=== PATIENT | female | born 1950 | race Caucasian/White ===

== ENCOUNTER → 2017-12-03 | Outpatient (CLI) | payer MEDICARE, OTHER ==
--- NOTE | 2017-12-03 11:23 | US ---
EXAMINATION TYPE: US pelvic complete DATE OF EXAM: 12/03/2017 COMPARISON: NONE CLINICAL HISTORY: 67-year-old female R10.9 abdominal pain; patient stated has pelvic pain with recurr ent UTI; post menopausal; A1 TECHNIQUE: Transabdominal sonographic images of the pelvis were acquired. Date of LMP: late 40's patient age FINDINGS: EXAM MEASUREMENTS: Uterus: 6.2 x 3.7 x 2.9 cm Endometrial Stripe: 2.6mm Right Ovary: 2.1 x 2.3 x 1.2 cm Left Ovary: 2.1 x 2.0 x 1.1 cm 1. Uterus: Anteverted 2. Endometrium: thickness appears wnl 3. Right Ovary: wnl 4. Left Ovary: wnl 5. Bilateral Adnexa: overlying bowel gas is noted 6. Posterior cul-de-sac: wnl 7. Bladder images are recorded on abdomen complete US today for history of recurrent UTI. IMPRESSION: No specific abnormality identified of the pelvis on transabdominal scanning.
--- NOTE | 2017-12-03 11:26 | US ---
EXAMINATION TYPE: US abdomen complete DATE OF EXAM: 12/03/2017 COMPARISON: NONE CLINICAL HISTORY: 67-year-old female R10.9 abdominal pain; pelvic pain with recurrent UTI x 1 year pe r patient TECHNIQUE: Multiple sonographic images of the abdomen were obtained. FINDINGS: EXAM MEASUREMENTS: Liver Length: 18.7 cm Gallbladder Wall: 0.2 cm CBD: 0.5 cm Spleen: 10.2 cm Right Kidney: 9.9 x 6.1 x 4.7 cm Left Kidney: 9.6 x 5.5 x 5.0 cm Pancreas: wnl Liver: Mildly enlarged with homogeneous appearance and no focal lesion. Gallbladder: Borderline hydropic with posterior wall echoes noted in LLD position.Evidence for son ographic Mendieta's sign: no CBD: wnl Spleen: wnl Right Kidney: No hydronephrosis. Left Kidney: Prominent lobulations. No hydronephrosis. Upper IVC: wnl Abd Aorta: mild intimal wall thickening is noted distally Urinary Bladder: Partial distention limits evaluation. The bilateral ureteral jets were seen. No peg s abnormality identified. Post Void volume is within normal limits at 4.2ml. IMPRESSION: 1. Small amount of tumefactive sludge in the gallbladder. Borderline gallbladder hydrops likely due t o fasting state. Clinically correlate. If right upper quadrant pain or concern for early acute cholec ystitis, follow-up ultrasound or HIDA scan. 2. Mild hepatomegaly (18.7 cm). 3. No sonographic evidence for urinary retention.
== END | disposition home or self-care (01) ==
LOC: RADUSWWP 06:49
PROVIDERS: ATTEND Internal Medicine
DX: K82.8 Other specified diseases of gallbladder (principal); R16.0 Hepatomegaly, not elsewhere classified; R10.9 Unspecified abdominal pain
CPT/HCPCS: 76700; 76856

== ENCOUNTER → 2019-04-06 | Outpatient (CLI) | payer MEDICARE, OTHER ==
--- NOTE | 2019-04-06 17:24 | CT ---
EXAMINATION TYPE: CT abdomen pelvis wo con DATE OF EXAM: 04/06/2019 COMPARISON: None HISTORY: abdominal pain and distention CT DLP: 330.9 mGycm Automated exposure control for dose reduction was used. TECHNIQUE: Helical acquisition of images was performed from the lung bases through the pelvis. FINDINGS: LUNG BASES: No significant abnormality is appreciated. LIVER/GB: Unenhanced liver is homogeneous but enlarged. No radiopaque calculi in the gallbladder. PANCREAS: No significant abnormality is seen. SPLEEN: No splenomegaly ADRENALS: No significant abnormality is seen. KIDNEYS: There is a lobular contour of both kidneys and evaluation for renal mass is limited without contrast. Hydronephrosis or nephrolithiasis. FREE AIR: No free air is visualized ADENOPATHY: No greater than 1 cm short axis lymph node in the abdomen or pelvis. REPRODUCTIVE ORGANS: No significant abnormality is seen OSSEOUS STRUCTURES: Advanced degenerative disc disease of the visualized thoracolumbar spine. BOWEL: There are multiple loops of small bowel demonstrating small bowel wall thickening and surroun ding inflammatory fat stranding. These predominate in the left mid abdomen such as on series 3 image 37. These loops are very mildly dilated measuring 3.2 cm. Contrast extends into the colon and through out the colon into the rectum therefore no evidence of bowel obstruction. Air-fluid levels are seen t hroughout the colon. Few colonic diverticula are present without pericolonic fat stranding. OTHER: Abdominal aorta is of normal course and caliber. Moderate atheromatous change. IMPRESSION: ACUTE UNCOMPLICATED ENTERITIS WITH INFLAMMATORY FAT STRANDING TERMINATING IN THE LEFT MID ABDOMEN. EN TERITIS IS TYPICALLY INFLAMMATORY OR INFECTIOUS IN ETIOLOGY. SMALL BOWEL ILEUS IS ALSO SEEN. NO OBSTR UCTION.
== END | disposition home or self-care (01) ==
LOC: RADCTMAIN 15:09
PROVIDERS: ATTEND Physician Assistant
DX: K52.9 Noninfective gastroenteritis and colitis, unspecified (principal); K63.89 Other specified diseases of intestine
CPT/HCPCS: 36415; 74176; 82565; 84520

== ENCOUNTER 2019-10-14 07:08 | Day surgery (SDC) | payer MEDICARE ==
[2019-10-13 09:05] VITALS: BMI 22.6
[~2019-10-14 07:08] MED LIST: DEXAMETHASONE SOD PHOSPHATE 10 MG/ML 1 ML VIAL IV ONE; LACTATED RINGERS 1,000 ML IV SCH; MOXIFLOXACIN HCL 0.5% DROPS 3 ML BTL OP ONE; ONDANSETRON 4 MG/2 ML VIAL IVP ONE; TETRACAINE 0.5% OPHTH (PF) DROPS 4 ML BTL OP ONE; TIMOLOL 0.5% OPHTH DROPS 5 ML BTL OP ONE
[2019-10-14] MEDS: CYCLOPENTOLATE 1% OPHTH SOLN 2 ML BTL OP ONE ×3 (07:28→07:46)
[2019-10-14] MEDS: PHENYLEPHRINE 2.5% OPHTH DRP 2ML OP NR ×3 (07:33→07:49)
[2019-10-14] MEDS ORDERED: LIDOCAINE 1% (10MG/ML) FOR IV START INTRADERMA ONE (07:35)
[2019-10-14 07:42] LABS: Glucose,Whole Blood 111 mg/dL (75-99)
[2019-10-14 07:56] VITALS: TEMP 96.5
[2019-10-14] MEDS ORDERED: fentaNYL (PF) 50 MCG/ML 2 ML AMP ONE (08:06)
[2019-10-14] MEDS ORDERED: MIDAZOLAM 2 MG/2 ML VIAL ONE (08:06)
[2019-10-14] MEDS ORDERED: EPINEPHrine (PF) 0.3 ML in BALANCED SALT IRRIG SOLN COMB2 500 ML IRRIGATION ONE (08:26)
[2019-10-14] MEDS ORDERED: BALANCED SALT IRRIG SOLN COMB2 15 ML IRRIG.SOLN INTRAOCULA ONE (08:32)
[2019-10-14] MEDS ORDERED: DUOVISC KIT (GREEN BOX) INTRAOCULA ONE ×2 (08:33)
[2019-10-14] MEDS ORDERED: LIDOCAINE 1% (PF) 10MG/ML VIAL SQ ONE (08:33)
[2019-10-14] MEDS ORDERED: EPINEPHrine (PF) 1 MG/ML AMP SQ ONE (08:42)
[2019-10-14] MEDS ORDERED: TETRACAINE 0.5% OPHTH (PF) DROPS 4 ML BTL RIGHT EYE ONE (08:43)
--- NOTE | 2019-10-14 08:49 | P.OP ---
Date of Procedure: 10/14/19 Preoperative Diagnosis: NS & CS Postoperative Diagnosis: same Procedure(s) Performed: PIOL, OD Implants: [id number] 15.50 Anesthesia: MAC Surgeon: Leeroy Ulrich Estimated Blood Loss (ml): 0 Pathology: none sent Condition: stable Disposition: same day Indications for Procedure: blurry vision Operative Findings: no complications
[2019-10-14 09:14] VITALS: BP 137/76; PULSE 70; RESP 18
--- NOTE | 2019-10-14 18:29 | OP ---
OPERATIVE REPORT DATE OF SURGERY: October 14, 2019. PROCEDURE PERFORMED: Phacoemulsification of cataract and intraocular lens implant of the right eye. PREOPERATIVE DIAGNOSIS: Nuclear sclerosis and cortical sclerosis. POSTOPERATIVE DIAGNOSES: Nuclear sclerosis and cortical sclerosis. Zonular dehiscence. SURGEON: Dr. Leeroy Ulrich. ANESTHESIA: Topical. ESTIMATED BLOOD LOSS: None. SPECIMEN: Taken none. NARRATIVE: After obtaining the appropriate consent, the patient was brought to the operating room. There she was placed under cardiac monitoring, prepped and draped in the usual sterile manner. She was approached from her right temporal side and at the 11 o'clock position a 1.1 mm MVR blade was used to create a paracentesis port. Through this opening, 1% Xylocaine MPF with 1:1000 epinephrine MPF and balanced salt solution in a ratio of 1:2:1 was instilled into the anterior chamber. This was followed by stabilization of the anterior chamber with Viscoat. At the 9 o'clock position, a 2.5 mm keratome was used to create a self-sealing corneal flap incision. Through this opening, a cystotome was introduced to begin a continuous tear capsulorrhexis which was then completed using the Utrata forceps. Hydrodissection and hydrodelineation of the lens was accomplished with balanced salt solution. Phacoemulsification lens utilizing phaco chop was accomplished in 14.11 seconds at 13% power. During the course of the removal of the nucleus, it was identified that there probably was some inferior zonular dehiscence appreciated and so careful removal of the cortex after installation of the med mixture was performed very carefully around the area between 4 and 7 o'clock as was appreciated during cortical evacuation. Therefore, a 13 mm capsular tension ring, model 276 US1G was placed into the capsular bag to ensure better centration. The remaining cortical material was then more easily removed with less chance of further extension of any zonular support, then again the capsular bag was then stabilized with additional Amvisc and a Bausch and Lomb MX 60E 15.5 diopter posterior chamber intraocular lens was then inserted into the capsular bag without any difficulty. The remaining viscoelastic was removed from in and around the intra-ocular lens. The eye was then brought to normal intraocular pressures through the paracentesis port. Paracentesis and temporal incision were confirmed watertight. She then received 2 drops of 0.5% timolol followed by 2 drops of moxifloxacin, was then lightly patched and shielded in the usual manner. There were no additional difficulties encountered during the course of the procedure. She tolerated the procedure otherwise well and was returned to outpatient recovery in good condition. KHALIDA / ALLISON: [id number] / MTDD
== END 2019-10-14 09:18 | disposition home or self-care (01) ==
LOC: OR 07:08
PROVIDERS: ATTEND Ophthalmology
DX: H25.13 Age-related nuclear cataract, bilateral (principal); H25.013 Cortical age-related cataract, bilateral; H35.373 Puckering of macula, bilateral; H52.13 Myopia, bilateral; H00.026 Hordeolum internum left eye, unspecified eyelid; H00.023 Hordeolum internum right eye, unspecified eyelid; H52.4 Presbyopia; I10 Essential (primary) hypertension; E78.5 Hyperlipidemia, unspecified; F41.9 Anxiety disorder, unspecified; K21.9 Gastro-esophageal reflux disease without esophagitis; I73.9 Peripheral vascular disease, unspecified; M19.90 Unspecified osteoarthritis, unspecified site; F17.210 Nicotine dependence, cigarettes, uncomplicated; Z88.5 Allergy status to narcotic agent; Z79.899 Other long term (current) drug therapy; Z90.89 Acquired absence of other organs; Z85.828 Personal history of other malignant neoplasm of skin; Z83.518 Family history of other specified eye disorder; Z80.9 Family history of malignant neoplasm, unspecified
CPT/HCPCS: 66982; L8610; C1780; J2250; J0171; J3010; J2001

== ENCOUNTER → 2019-10-16 | Day surgery (SDC) | payer MEDICARE ==
[2019-10-15 13:54] VITALS: BMI 23.6
[~2019-10-16] MED LIST changes: +ACETYLCHOLINE CHLORIDE 10 MG/ML 2 ML KIT INTRAOCULA ONE; +BALANCED SALT IRRIG SOLN COMB2 15 ML IRRIG.SOLN IRRIGATION ONE; +CYCLOPENTOLATE 1% OPHTH SOLN 2 ML BTL OP ONE; +HYALURONATE SODIUM INTRAOCULAR 1 EACH SYRINGE (12MG/ML) INTRAOCULA ONE; +HYDROmorphone 0.5 MG/0.5 ML SYRINGE IVP PRN; +LIDOCAINE 1% (10MG/ML) FOR IV START INTRADERMA PRN; +LIDOCAINE 1% (PF) 10MG/ML VIAL MISCELLANE ONE; +MIDAZOLAM 2 MG/2 ML VIAL IV PRN; +MIDAZOLAM 2 MG/2 ML VIAL ONE; -MOXIFLOXACIN HCL 0.5% DROPS 3 ML BTL OP ONE; +PHENYLEPHRINE 2.5% OPHTH DRP 2ML OP NR; -TIMOLOL 0.5% OPHTH DROPS 5 ML BTL OP ONE; +fentaNYL (PF) 50 MCG/ML 2 ML AMP IV PRN; +fentaNYL (PF) 50 MCG/ML 2 ML AMP ONE
[2019-10-16 13:00] VITALS: TEMP 97.2
[2019-10-16 13:01] LABS: Glucose,Whole Blood 91 mg/dL (75-99)
[2019-10-16] MEDS: MOXIFLOXACIN HCL 0.5% DROPS 3 ML BTL OP ONE ×2 (14:57→15:05)
[2019-10-16] MEDS: TIMOLOL 0.5% OPHTH DROPS 5 ML BTL OP ONE ×2 (14:57→15:05)
--- NOTE | 2019-10-16 15:16 | P.OP ---
Date of Procedure: 10/16/19 Preoperative Diagnosis: CTR displaced Postoperative Diagnosis: same Procedure(s) Performed: reposition Implants: none Anesthesia: MAC Surgeon: Leeroy Ulrich Estimated Blood Loss (ml): 0 Pathology: none sent Condition: stable Disposition: same day Indications for Procedure: displaced CTR Operative Findings: no complications
[2019-10-16 15:24] VITALS: BP 151/75; PULSE 73; RESP 17
--- NOTE | 2019-10-17 17:33 | OP ---
OPERATIVE REPORT DATE OF SURGERY: October 16, 2019. PROCEDURE PERFORMED: Repositioning of capsular tension ring of the right eye. POSTOP DIAGNOSIS: Mechanical dislocation of intra-ocular prosthetic. POSTOPERATIVE DIAGNOSIS: Mechanical dislocation of intraocular prosthetic. SURGEON: Dr. Leeroy Ulrich. ANESTHESIA: Topical. ESTIMATED BLOOD LOSS: None. SPECIMEN: Taken none. NARRATIVE: After obtaining the appropriate consent, the patient was brought to the operating room. There she was placed on cardiac monitoring, prepped and draped in the usual sterile manner. She was approached from her right temporal side and careful pressure against the temporal incision placed the day before with an irrigating cannula. The temporal incision was opened easily. Into the anterior chamber was instilled 1% Xylocaine MPF 50/50 mixed with balanced salt solution. This was followed by stabilization of the anterior chamber with Amvisc. A gonio prism was placed on the patient's eye and identification of the capsular tension ring, overlapping the iris at approximately the 1 o'clock position to the 11 o'clock was made. Using a Sinskey hook, the edge of the capsular tension ring was guided away from the anterior chamber angle and reposited within the capsular bag. Removal of the remaining viscoelastic was accomplished with irrigation and aspiration. The temporal incision was ensured watertight and through the previous paracentesis Miochol was instilled to bring bring about pupillary miosis to confirm no further entrapment of the iris or its sphincter. Incisions were confirmed watertight. She then received 2 drops of 0.5% timolol followed by 2 drops of moxifloxacin, was then lightly patched and shielded in the usual manner. There were no complications from the procedure. She tolerated the procedure well, was returned to outpatient recovery in good condition. MMODL / IJN: [id number] /
== END | disposition home or self-care (01) ==
LOC: OR 12:08
PROVIDERS: ATTEND Ophthalmology
DX: T85.328A Displacement of other ocular prosthetic devices, implants and grafts, initial encounter (principal); H35.373 Puckering of macula, bilateral; H25.12 Age-related nuclear cataract, left eye; H00.026 Hordeolum internum left eye, unspecified eyelid; H00.023 Hordeolum internum right eye, unspecified eyelid; H52.13 Myopia, bilateral; H52.4 Presbyopia; I10 Essential (primary) hypertension; I73.9 Peripheral vascular disease, unspecified; E78.5 Hyperlipidemia, unspecified; F17.210 Nicotine dependence, cigarettes, uncomplicated; K21.9 Gastro-esophageal reflux disease without esophagitis; F41.9 Anxiety disorder, unspecified; M19.90 Unspecified osteoarthritis, unspecified site; E78.00 Pure hypercholesterolemia, unspecified; Z88.5 Allergy status to narcotic agent; Z79.899 Other long term (current) drug therapy; Z85.828 Personal history of other malignant neoplasm of skin; Z80.9 Family history of malignant neoplasm, unspecified; Z83.518 Family history of other specified eye disorder; Z96.1 Presence of intraocular lens; Z98.41 Cataract extraction status, right eye
CPT/HCPCS: 66825; J2250; J3010; J2001

== ENCOUNTER 2019-10-28 09:15 | Day surgery (SDC) | payer MEDICARE ==
[2019-10-27 09:57] VITALS: BMI 23.3
[~2019-10-28 09:15] MED LIST changes: -ACETYLCHOLINE CHLORIDE 10 MG/ML 2 ML KIT INTRAOCULA ONE; -BALANCED SALT IRRIG SOLN COMB2 15 ML IRRIG.SOLN IRRIGATION ONE; -CYCLOPENTOLATE 1% OPHTH SOLN 2 ML BTL OP ONE; -DEXAMETHASONE SOD PHOSPHATE 10 MG/ML 1 ML VIAL IV ONE; -HYALURONATE SODIUM INTRAOCULAR 1 EACH SYRINGE (12MG/ML) INTRAOCULA ONE; -HYDROmorphone 0.5 MG/0.5 ML SYRINGE IVP PRN; -LIDOCAINE 1% (10MG/ML) FOR IV START INTRADERMA PRN; -LIDOCAINE 1% (PF) 10MG/ML VIAL MISCELLANE ONE; -MIDAZOLAM 2 MG/2 ML VIAL IV PRN; -MIDAZOLAM 2 MG/2 ML VIAL ONE; -ONDANSETRON 4 MG/2 ML VIAL IVP ONE; -PHENYLEPHRINE 2.5% OPHTH DRP 2ML OP NR; +Pre Op ABX Message 1 EACH MISC MISCELLANE ONE; -fentaNYL (PF) 50 MCG/ML 2 ML AMP IV PRN; -fentaNYL (PF) 50 MCG/ML 2 ML AMP ONE
[2019-10-28 10:15] VITALS: TEMP 97.6
[2019-10-28] MEDS: PHENYLEPHRINE 2.5% OPHTH DRP 2ML OP NR ×3 (10:21→10:33)
[2019-10-28] MEDS: CYCLOPENTOLATE 1% OPHTH SOLN 2 ML BTL OP ONE ×3 (10:24→10:36)
[2019-10-28] MEDS ORDERED: MIDAZOLAM 2 MG/2 ML VIAL IVP ONE (10:45)
[2019-10-28] MEDS ORDERED: MIDAZOLAM 2 MG/2 ML VIAL ONE (11:01)
[2019-10-28] MEDS ORDERED: fentaNYL (PF) 50 MCG/ML 2 ML AMP ONE (11:01)
[2019-10-28] MEDS ORDERED: HYALURONATE SODIUM INTRAOCULAR 1 EACH SYRINGE (12MG/ML) INTRAOCULA ONE ×2 (11:03→11:15)
[2019-10-28] MEDS ORDERED: BALANCED SALT IRRIG SOLN COMB2 15 ML IRRIG.SOLN IRRIGATION ONE ×2 (11:04→11:15)
[2019-10-28] MEDS: TIMOLOL 0.5% OPHTH DROPS 5 ML BTL OP ONE ×2 (11:04→11:27)
[2019-10-28] MEDS ORDERED: LIDOCAINE 1% (PF) 10MG/ML VIAL MISCELLANE ONE ×2 (11:04→11:15)
[2019-10-28] MEDS: MOXIFLOXACIN HCL 0.5% DROPS 3 ML BTL OP ONE ×2 (11:04→11:27)
[2019-10-28] MEDS ORDERED: TRYPAN BLUE 0.06% SYRINGE 0.5 ML SYRINGE INTRAOCULA ONE (11:04)
[2019-10-28] MEDS ORDERED: EPINEPHrine (PF) 0.3 ML in BALANCED SALT IRRIG SOLN COMB2 500 ML IRRIGATION ONE (11:09)
--- NOTE | 2019-10-28 11:29 | P.OP ---
Date of Procedure: 10/28/19 Preoperative Diagnosis: NS & CS Postoperative Diagnosis: same Procedure(s) Performed: PIOL, OS Implants: MX60 17.00 Anesthesia: MAC Surgeon: Leeroy Ulrich Estimated Blood Loss (ml): 0 Pathology: none sent Condition: stable Disposition: same day Indications for Procedure: blurry vision Operative Findings: no complications
[2019-10-28 11:57] VITALS: BP 128/70; PULSE 69; RESP 18
--- NOTE | 2019-10-29 12:05 | OP ---
OPERATIVE REPORT DATE OF SERVICE: 10/28/2019 PREOPERATIVE DIAGNOSIS: Nuclear sclerosis. Cortical sclerosis. POSTOPERATIVE DIAGNOSIS: Nuclear sclerosis. Cortical sclerosis. OPERATION: Clear cornea phacoemulsification of cataract OS eye. ESTIMATED BLOOD LOSS: Zero. SPECIMEN TAKEN: None. NARRATIVE: After obtaining the appropriate consent, the patient was brought to the Operating Room where the patient was placed under cardiac monitoring and prepped and draped in the usual sterile manner. At the 5 o'clock position a 15 degree super sharp blade was used to create a paracentesis followed by instillation of 1% Xylocaine MPF 50:50 mix with BSS into the anterior chamber. This was followed by Amvisc to stabilize the anterior chamber. At the 3 o'clock position a self-sealing corneal flap incision was created using 2.8 mm blayne keratome. A cystotome was used to initiate a continuous tear capsulorrhexis which was completed with the Utrata forceps. A Binkhorst cannula was used to hydrodissect the lens nucleus followed by hydrodelineation. Phacoemulsification of the lens was performed utilizing phacochop in 10.54 seconds at 15% power. The remaining cortical material was removed using the irrigation aspiration mode followed by additional 1% Xylocaine MPF into the anterior chamber followed by viscoelastic to stabilize the capsular bag. A Bausch & Lomb MX 60 E 17.0 diopter posterior chamber lens was placed into the capsular bag without difficulty. The remaining viscoelastic material was removed from the anterior chamber with the irrigation/aspiration. Balanced salt solution was used to normalize the intraocular pressure. The incision was checked for watertight integrity. The patient then received two drops of 0.5% timolol followed by two drops Vigamox, was lightly patched and shielded in the usual manner. There were no complications from the procedure. The patient tolerated the procedure well and was returned to recovery in good condition. MMODL / IJN: [id number] /
== END 2019-10-28 12:11 | disposition home or self-care (01) ==
LOC: OR 09:15
PROVIDERS: ATTEND Ophthalmology
DX: H25.12 Age-related nuclear cataract, left eye (principal); H25.012 Cortical age-related cataract, left eye; H35.373 Puckering of macula, bilateral; H00.026 Hordeolum internum left eye, unspecified eyelid; H00.023 Hordeolum internum right eye, unspecified eyelid; H52.13 Myopia, bilateral; H52.4 Presbyopia; Z98.41 Cataract extraction status, right eye; Z96.1 Presence of intraocular lens; I10 Essential (primary) hypertension; E78.5 Hyperlipidemia, unspecified; G47.33 Obstructive sleep apnea (adult) (pediatric); K21.9 Gastro-esophageal reflux disease without esophagitis; F41.9 Anxiety disorder, unspecified; I73.9 Peripheral vascular disease, unspecified; M19.90 Unspecified osteoarthritis, unspecified site; Z79.899 Other long term (current) drug therapy; Z88.5 Allergy status to narcotic agent; Z90.89 Acquired absence of other organs; Z85.828 Personal history of other malignant neoplasm of skin; Z97.3 Presence of spectacles and contact lenses; Z80.9 Family history of malignant neoplasm, unspecified; Z83.518 Family history of other specified eye disorder
CPT/HCPCS: 66984; C1780; J2250; J0171; J3010; J2001

== ENCOUNTER 2021-08-01 12:44 | Inpatient (IN) | payer MEDICARE ==
[2021-08-01] MEDS ORDERED: SODIUM CHLORIDE 0.9% 1,000 ML IV STA (13:21)
--- NOTE | 2021-08-01 13:23 | ED ---
General Adult HPI - General Chief complaint: Extremity Injury, Lower Stated complaint: +DVT Time Seen by Provider: 08/01/21 13:09 Source: patient, RN notes reviewed Mode of arrival: ambulatory Limitations: physical limitation - History of Present Illness Initial comments: Patient is a pleasant 71-year-old female presenting to the emergency department with complaints of left leg discomfort. Onset of symptoms was yesterday. Patient has discomfort behind her left knee. Patient states also little bit of swelling. Patient did have outpatient ultrasound done and was advised come to the emergency department. No chest pain. Patient states there has been some minimal exertional shortness of breath over the past few months. No cough. No fever. - Related Data Home Medications Medication Instructions Recorded Confirmed Lovastatin [Mevacor] 20 mg PO HS 10/13/19 08/01/21 lisinopriL 20 mg PO HS 10/13/19 08/01/21 ALPRAZolam [Xanax] 0.25 mg PO DAILY PRN 08/01/21 08/01/21 Albuterol Sulfate [Ventolin HFA] 2 puff INHALATION RT-Q6H PRN 08/01/21 08/01/21 Citalopram Hydrobromide [CeleXA] 20 mg PO DAILY 08/01/21 08/01/21 Febuxostat [Uloric] 40 mg PO DAILY 08/01/21 08/01/21 amLODIPine [Norvasc] 2.5 mg PO DAILY 08/01/21 08/01/21 Allergies Allergy/AdvReac Type Severity Reaction Status Date / Time codeine AdvReac Nausea Verified 08/01/21 14:30 Review of Systems ROS Statement: Those systems with pertinent positive or pertinent negative responses have been documented in the HPI. ROS Other: All systems not noted in ROS Statement are negative. Constitutional: Denies: fever Eyes: Denies: eye pain ENT: Denies: ear pain Respiratory: Reports: as per HPI. Denies: cough Cardiovascular: Denies: chest pain Endocrine: Denies: fatigue Gastrointestinal: Denies: abdominal pain Genitourinary: Denies: dysuria Musculoskeletal: Reports: as per HPI. Denies: back pain Past Medical History Past Medical History: Cancer, Eye Disorder, GERD/Reflux, Hyperlipidemia, Hypertension Additional Past Medical History / Comment(s): brittany cataracts, SOB w/ activity,steroid injection September 2019,skin CA w/ removal, just finished antibiotic for abscess on baby toe History of Any Multi-Drug Resistant Organisms: None Reported Past Surgical History: Tonsillectomy Additional Past Surgical History / Comment(s): rt cataract 10-14-19 Past Anesthesia/Blood Transfusion Reactions: No Reported Reaction Past Psychological History: Depression Smoking Status: Current some day smoker Past Alcohol Use History: Occasional Past Drug Use History: Marijuana - Past Family History Mother Family Medical History: No Reported History Sister(s) Family Medical History: Cancer Additional Family Medical History / Comment(s): breast General Exam Limitations: no limitations General appearance: alert Head exam: Present: normocephalic Eye exam: Present: normal appearance ENT exam: Present: normal oropharynx Neck exam: Present: normal inspection Respiratory exam: Present: normal lung sounds bilaterally Cardiovascular Exam: Present: regular rate, normal rhythm Expanded Peripheral pulses: 2+: Posterior Tibialis (L), Dorsalis Pedis (L) GI/Abdominal exam: Present: soft. Absent: tenderness Extremities exam: Present: calf tenderness (Mild tenderness left upper calf and popliteal region.) Neurological exam: Present: alert Psychiatric exam: Present: normal affect, normal mood Skin exam: Present: normal color Course Vital Signs 08/01/21 13:04 Temperature 99.1 F Pulse Rate 89 Respiratory 18 Rate Blood Pressure 127/74 O2 Sat by Pulse 98 Oximetry - Reevaluation(s) Reevaluation #1: 08/01/21 13:22 Discussion had with patient regarding her shortness of breath and patient would like to proceed with computed tomography scan. Medical Decision Making - Medical Decision Making Patient reevaluated and updated. Case was discussed with Dr. schreiber, who will admit covering hospital call. Case also discussed with Dr. Madison does agree with high dose heparin. He is aware of trauma center p.m. He does request a consult placed for vascular surgery. - Lab Data Result diagrams: 08/01/21 13:31 08/01/21 13:51 Lab Results 08/01/21 08/01/21 08/01/21 Range/Units 13:31 13:31 13:51 WBC 8.4 (3.8-10.6) k/uL RBC 4.69 (3.80-5.40) m/uL Hgb 14.1 (11.4-16.0) gm/dL Hct 43.1 (34.0-46.0) % MCV 91.8 (80.0-100.0) fL MCH 30.0 (25.0-35.0) pg MCHC 32.7 (31.0-37.0) g/dL RDW 14.0 (11.5-15.5) % Plt Count 75 L (150-450) k/uL MPV 7.6 Neutrophils % 75 % Lymphocytes % 17 % Monocytes % 7 % Eosinophils % 0 % Basophils % 0 % Neutrophils # 6.2 (1.3-7.7) k/uL Lymphocytes # 1.4 (1.0-4.8) k/uL Monocytes # 0.6 (0-1.0) k/uL Eosinophils # 0.0 (0-0.7) k/uL Basophils # 0.0 (0-0.2) k/uL Manual Slide Review Performed Poikilocytosis (manual Present Anisocytosis (manual) Present PT 11.3 (9.0-12.0) sec INR 1.0 (<1.2) APTT 22.7 (22.0-30.0) sec Sodium 134 L (137-145) mmol/L Potassium 4.0 (3.5-5.1) mmol/L Chloride 108 H (98-107) mmol/L Carbon Dioxide 20 L (22-30) mmol/L Anion Gap 6 mmol/L BUN 31 H (7-17) mg/dL Creatinine 1.01 (0.52-1.04) mg/dL Est GFR (CKD-EPI)AfAm 65 (>60 ml/min/1.73 sqM) Est GFR (CKD-EPI)NonAf 57 (>60 ml/min/1.73 sqM) Glucose 82 (74-99) mg/dL Calcium 9.0 (8.4-10.2) mg/dL - Radiology Data Radiology results: report reviewed (As discussed with radiologist there is concern for saddle embolism without strain. Ultrasound shows nonocclusive DVT popliteal) Critical Care Time Critical Care Time: Yes Total Critical Care Time: 32 Disposition Clinical Impression: Pulmonary embolism Disposition: ADMITTED IP TO THIS [facility] Condition: Serious Referrals: Nonstaff,Physician [REFERRING] - 1-2 days Decision Time: 16:22
[2021-08-01 13:58] LABS: Partial Thromboplastin Time 22.7 sec (22.0-30.0); Prothrombin Time 11.3 sec (9.0-12.0)
[2021-08-01 14:16] LABS: Basophils % (A) 0 %; Eosinophils % (A) 0 %; HCT 43.1 % (34.0-46.0); HGB 14.1 gm/dL (11.4-16.0); Lymphocytes # (A) 1.4 k/uL (1.0-4.8); Lymphocytes % (A) 17 %; MCHC 32.7 g/dL (31.0-37.0); MCV 91.8 fL (80.0-100.0); Mean Platelet Volume 7.6; Monocytes # (A) 0.6 k/uL (0-1.0); Monocytes % (A) 7 %; Neutrophils # (A) 6.2 k/uL (1.3-7.7); Neutrophils % (A) 75 %; RBC 4.69 m/uL (3.80-5.40); WBC 8.4 k/uL (3.8-10.6)
[2021-08-01 14:56] LABS: Anisocytosis (M) Present; Platelet Count 75 k/uL (150-450); Poikilocytosis (M) Present
--- NOTE | 2021-08-01 15:51 | CT ---
EXAMINATION TYPE: CT angio chest DATE OF EXAM: 08/01/2021 COMPARISON: HISTORY: Dyspnea, dvt. CT DLP: 314 mGycm Automated exposure control for dose reduction was used. CONTRAST: CTA scan of the thorax is performed with IV Contrast, patient injected with 80 mL of Isovue 370, pulm onary embolism protocol. MIP images are created and reviewed. 3D reconstructed images are created o n an independent workstation and reviewed. FINDINGS: LUNGS: The lungs show minimal dependent atelectatic changes, there is no concerning parenchymal mass or nodule identified. There is no pleural effusion or pneumothorax seen. The tracheobronchial tree is patent. AORTA: No additional significant abnormality is seen. MEDIASTINUM: There is satisfactory enhancement of the pulmonary artery and its branches, there is sag ittal embolus present, filling defects extend into the right and left pulmonary artery and into the s egmental branches in the lower lobes and right upper and middle lobes. There are no greater than 1 c m hilar or mediastinal lymph nodes. No pericardial effusion is seen. OTHER: There is lateral curvature, multilevel spondylosis. IMPRESSION: PULMONARY EMBOLI BILATERALLY DESCRIBED, REPORT RELAYED TO DR. CHINCHILLA TELEPHONICALLY 1545 HOURS TIME OF INTERPRETATION
[2021-08-01] MEDS ORDERED: NALOXONE 0.4 MG/ML 1 ML VIAL IV PRN (16:23)
[2021-08-01] MEDS ORDERED: HEPARIN SODIUM 1,000 UN/ML (10ML VL) IV ONE (17:22)
[2021-08-01] MEDS ORDERED: HEPARIN SODIUM 1,000 UN/ML (10ML VL) IV PRN (17:22)
[2021-08-01] MEDS: HEPARIN SOD,PORK IN 0.45% NACL 25,000 UNIT in 0.45% NACL 1 250ML.BAG IV SCH (17:32)
[2021-08-01] MEDS ORDERED: ALBUTEROL NEBULIZED 2.5 MG/3 ML INHALATION PRN (18:17)
--- NOTE | 2021-08-01 18:19 | P.HPIM ---
History of Present Illness This is a pleasant 71 years old female with past medical history of osteoarthritis of the hips undergoing physical therapy, hypertension, hyperlipidemia, cigarette smoker, GERD, depression Patient reports bruising easily but no history of deep venous thrombosis. She was working with her physical therapy when she reported left leg swelling and she was referred to urgent care before come to emergency room and ultrasound showed a 2 DVT while CTA showing pulmonary embolism. Patient was complaining of from some shortness of breath but denies coughing, no hemoptysis, no chest pain. Patient denies history of cancer, no history of bed ridden secondary to surgery over the last 3 months, no recent history of treated by a car or plane She is a smoker about half cigarettes 3 times a day as she describes, she was counseled to quit and she agrees stating that she has nicotine patches at home. She drinks up will wants a day and sometimes before. No illicit drugs CTA of the chest showing bilateral multiple emboli Patient is hemodynamically stable. Labs including CBC, INR, BMP is unremarkable. Patient is a started on normal saline and heparin drip Pulmonary, vascular surgery and hematology team's consulted already Review of Systems CONSTITUTIONAL: No fever, no malaise, no fatigue. HEENT: No recent visual problems or hearing problems. Denied any sore throat. CARDIOVASCULAR: No orthopnea, PND, no palpitations, no syncope. PULMONARY: No chest wall tenderness, no hemoptysis. GASTROINTESTINAL: No diarrhea, no nausea, no vomiting, no abdominal pain. Normoactive bowel sounds. NEUROLOGICAL: No headaches, no weakness, no numbness. HEMATOLOGICAL: Denies any bleeding or petechiae. GENITOURINARY: Denies any burning micturition, frequency, or urgency. MUSCULOSKELETAL/RHEUMATOLOGICAL: Denies any joint pain, swelling, or any muscle pain. ENDOCRINE: Denies any polyuria or polydipsia. Past Medical History Past Medical History: Cancer, Eye Disorder, GERD/Reflux, Hyperlipidemia, Hypertension Additional Past Medical History / Comment(s): brittany cataracts, SOB w/ activity,steroid injection September 2019,skin CA w/ removal, just finished antibiotic for abscess on baby toe History of Any Multi-Drug Resistant Organisms: None Reported Past Surgical History: Tonsillectomy Additional Past Surgical History / Comment(s): rt cataract 10-14-19 Past Anesthesia/Blood Transfusion Reactions: No Reported Reaction Past Psychological History: Depression Smoking Status: Current some day smoker Past Alcohol Use History: Occasional Past Drug Use History: Marijuana - Past Family History Mother Family Medical History: No Reported History Sister(s) Family Medical History: Cancer Additional Family Medical History / Comment(s): breast Medications and Allergies Home Medications Medication Instructions Recorded Confirmed Type Lovastatin [Mevacor] 20 mg PO HS 10/13/19 08/01/21 History lisinopriL 20 mg PO HS 10/13/19 08/01/21 History ALPRAZolam [Xanax] 0.25 mg PO DAILY PRN 08/01/21 08/01/21 History Albuterol Sulfate [Ventolin HFA] 2 puff INHALATION RT-Q6H PRN 08/01/21 08/01/21 History Citalopram Hydrobromide [CeleXA] 20 mg PO DAILY 08/01/21 08/01/21 History Febuxostat [Uloric] 40 mg PO DAILY 08/01/21 08/01/21 History amLODIPine [Norvasc] 2.5 mg PO DAILY 08/01/21 08/01/21 History Allergies Allergy/AdvReac Type Severity Reaction Status Date / Time codeine AdvReac Nausea Verified 08/01/21 14:30 Physical Exam Vitals: Vital Signs Temp Pulse Resp BP Pulse Ox 08/01/21 17:03 82 18 199/91 98 08/01/21 13:04 99.1 F 89 18 127/74 98 Intake and Output 08/01/21 08/01/21 08/01/21 06:59 14:59 22:59 Other: Weight 64.41 kg GENERAL: The patient is alert and oriented x3, not in any acute distress. Well developed, well nourished. HEENT: Pupils are round and equally reacting to light. EOMI. No scleral icterus. No conjunctival pallor. Normocephalic, atraumatic. No pharyngeal erythema. No thyromegaly. CARDIOVASCULAR: S1 and S2 present. No murmurs, rubs, or gallops. PULMONARY: Chest is clear to auscultation, no wheezing or crackles. ABDOMEN: Soft, nontender, nondistended, normoactive bowel sounds. No palpable organomegaly. MUSCULOSKELETAL: No joint swelling or deformity. -EXTREMITIES: No cyanosis, clubbing,. Left leg is swollen and warm NEUROLOGICAL: Gross neurological examination did not reveal any focal deficits. SKIN: No rashes. No petechiae Results CBC & Chem 7: 08/01/21 13:31 08/01/21 13:51 Labs: Abnormal Lab Results - Last 24 Hours (Table) 08/01/21 08/01/21 Range/Units 13:31 13:51 Plt Count 75 L (150-450) k/uL Sodium 134 L (137-145) mmol/L Chloride 108 H (98-107) mmol/L Carbon Dioxide 20 L (22-30) mmol/L BUN 31 H (7-17) mg/dL Assessment and Plan Assessment: Acute Bilateral pulmonary emboli Left leg acute deep venous thrombosis alcohol abuse Nicotine dependence Hypertension Hyperlipidemia Nicotine dependence History of GERD History of depression, not an active issue. Plan: This is a pleasant 71 years old female who presents with acute DVT Continue with heparin infusion check echocardiogram Hematology consults Follow-up with pulmonary and vascular surgery [facility] protocol amphetamine initiated Labs and medication were reviewed.. Continue same treatment. Continue with symptomatic treatment. Resume home medication. Monitor lytes and vitals. DVT and GI prophylaxis. Further recommendations depends on the clinical course of the patient DVT prophylaxis:s heparin GI Prophylaxis: Pepcid
[2021-08-01] MEDS: THIAMINE 100 MG TAB PO SCH (18:42)
[2021-08-01] MEDS: ALPRAZolam 0.25 MG TAB PO PRN (20:19)
[2021-08-01] MEDS: FAMOTIDINE 20 MG/2 ML VIAL IV SCH (20:19)
[2021-08-01] MEDS: lisinopriL 20 MG TAB PO SCH (20:19)
[2021-08-02 00:46] LABS: Basophils % (A) 0 %; Eosinophils % (A) 0 %; HCT 37.1 % (34.0-46.0); HGB 12.2 gm/dL (11.4-16.0); Lymphocytes # (A) 1.1 k/uL (1.0-4.8); Lymphocytes % (A) 22 %; MCH 30.7 pg (25.0-35.0); MCHC 32.8 g/dL (31.0-37.0); MCV 93.6 fL (80.0-100.0); Mean Platelet Volume 7.8; Monocytes # (A) 0.3 k/uL (0-1.0); Monocytes % (A) 6 %; Neutrophils # (A) 3.5 k/uL (1.3-7.7); Neutrophils % (A) 71 %; RBC 3.97 m/uL (3.80-5.40); RDW 13.6 % (11.5-15.5)
[2021-08-02 00:48] LABS: Platelet Count 61 k/uL (150-450)
[2021-08-02] MEDS: THIAMINE 100 MG TAB PO SCH (09:03)
[2021-08-02] MEDS: amLODIPine 2.5 MG TAB PO SCH (09:03)
[2021-08-02] MEDS: FAMOTIDINE 20 MG/2 ML VIAL IV SCH ×2 (09:03→19:47)
[2021-08-02] MEDS: CITALOPRAM HYDROBROMIDE 20 MG TAB PO SCH (09:03)
[2021-08-02 09:36] LABS: Basophils % (A) 0 %; Eosinophils % (A) 0 %; HCT 38.8 % (34.0-46.0); HGB 12.5 gm/dL (11.4-16.0); Lymphocytes # (A) 1.2 k/uL (1.0-4.8); Lymphocytes % (A) 26 %; MCH 30.7 pg (25.0-35.0); MCHC 32.4 g/dL (31.0-37.0); MCV 94.9 fL (80.0-100.0); Mean Platelet Volume 7.6; Monocytes # (A) 0.3 k/uL (0-1.0); Monocytes % (A) 6 %; Neutrophils % (A) 66 %; RBC 4.08 m/uL (3.80-5.40); RDW 13.6 % (11.5-15.5); WBC 4.5 k/uL (3.8-10.6)
[2021-08-02 09:43] LABS: Platelet Count 63 k/uL (150-450)
--- NOTE | 2021-08-02 09:46 | P.CONS ---
History of Present Illness - Reason for Consult Consult date: 08/02/21 Thrombocytopenia Requesting physician: Alcon Pires - History of Present Illness Mrs. Perez is a 71 year old female admitted with new Bilateral Pulmonary Emboli and LLE DVT. On presentation platelets 75K, 61K today. Unfortunately there is no prior CBC or Hepatic Function for comparision. CT abdomen and Pelvis in 2019 does reveal enlarged liver. She was apparently recently treated for Toe infection and completed antibiotics within the past week. No personal history of cancer is know other then skin which was treated with removal. Because of the need for AC therapy and thrombocytopenia we have been asked to further evaluate. Patient seen and evaluated, admits to being less active the past years, she states due to depression. 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 She complains of increased pain in her bilateral hips in which she follows with ortho/pain for injections steroids. Last on 07/14/21. SHe denies heavy alcohol use, however per medical record 4-6 glasses of wine daily. Review of Systems All systems: negative Constitutional: Reports as per HPI Past Medical History Past Medical History: Cancer, Eye Disorder, GERD/Reflux, Hyperlipidemia, Hypertension Additional Past Medical History / Comment(s): brittany cataracts, SOB w/ activity,steroid injection September 2019,skin CA w/ removal, abscess on baby toe, skin CA History of Any Multi-Drug Resistant Organisms: None Reported Past Surgical History: Tonsillectomy Additional Past Surgical History / Comment(s): rt cataract 10-14-19 Past Anesthesia/Blood Transfusion Reactions: No Reported Reaction Past Psychological History: Depression Smoking Status: Former smoker Past Alcohol Use History: Occasional Additional Past Alcohol Use History / Comment(s): started smoking at age 19 Past Drug Use History: Marijuana Additional Drug Use History / Comment(s): uses marijuana occas. - Past Family History Mother Family Medical History: No Reported History Sister(s) Family Medical History: Cancer Additional Family Medical History / Comment(s): breast Medications and Allergies Home Medications Medication Instructions Recorded Confirmed Type Lovastatin [Mevacor] 20 mg PO HS 10/13/19 08/01/21 History lisinopriL 20 mg PO HS 10/13/19 08/01/21 History ALPRAZolam [Xanax] 0.25 mg PO DAILY PRN 08/01/21 08/01/21 History Albuterol Sulfate [Ventolin HFA] 2 puff INHALATION RT-Q6H PRN 08/01/21 08/01/21 History Citalopram Hydrobromide [CeleXA] 20 mg PO DAILY 08/01/21 08/01/21 History Febuxostat [Uloric] 40 mg PO DAILY 08/01/21 08/01/21 History amLODIPine [Norvasc] 2.5 mg PO DAILY 08/01/21 08/01/21 History Allergies Allergy/AdvReac Type Severity Reaction Status Date / Time codeine AdvReac Nausea Verified 08/01/21 14:30 Physical Exam Vitals: Vital Signs Temp Pulse Pulse Resp BP BP Pulse Ox 08/02/21 09:00 98.9 F 72 18 142/70 97 08/02/21 04:00 98.5 F 62 16 118/70 96 08/02/21 02:00 67 18 08/01/21 23:16 99.0 F 67 18 136/76 96 08/01/21 20:00 98.7 F 77 16 137/71 97 08/01/21 18:31 98.6 F 80 16 139/67 95 08/01/21 17:03 82 18 199/91 98 08/01/21 13:04 99.1 F 89 18 127/74 98 Intake and Output 08/01/21 08/02/21 08/02/21 22:59 06:59 14:59 Intake Total 94.105 Output Total 300 Balance -205.895 Intake: Intake, IV Titration 94.105 Amount Heparin Sod,Pork in 0.45% 94.105 NaCl 25,000 unit In 0.45 % NaCl 1 250ml.bag @ 18 UNITS/KG/HR 11.594 mls/hr IV .[id number] [facility] Rx#: [id number] Output: Urine 300 Other: Voiding Method Bedside Commode Bedside Commode # Voids 1 Weight 64.41 kg Alert and Oriented NAD Lungs diminished bilateral no increased effort Eccymosis bilateral arms and legs. Abd soft Ext LLL slight increase right Results CBC & Chem 7: 08/02/21 08:02 08/02/21 08:02 Labs: Abnormal Lab Results - Last 24 Hours (Table) 03/29/22 03/29/22 03/30/22 Range/Units 13:31 13:51 00:15 Plt Count 75 L (150-450) k/uL APTT 180.5 H* (22.0-30.0) sec Sodium 134 L (137-145) mmol/L Chloride 108 H (98-107) mmol/L Carbon Dioxide 20 L (22-30) mmol/L BUN 31 H (7-17) mg/dL 08/02/21 Range/Units 00:15 Plt Count 61 L (150-450) k/uL APTT (22.0-30.0) sec Sodium (137-145) mmol/L Chloride (98-107) mmol/L Carbon Dioxide (22-30) mmol/L BUN (7-17) mg/dL CT scan - chest: report reviewed Venous US: report reviewed Assessment and Plan (1) Left leg DVT Current Visit: Yes Status: Acute Code(s): I82.402 - ACUTE EMBOLISM AND THOMBOS UNSP DEEP VEINS OF L LOW EXTREM SNOMED Code(s): 646943209 (2) Thrombocytopenia Narrative/Plan: - Thrombocytopenia work-up has been ordered - As long as no s/s bleeding transfusion support to maintain platelet count greater than 50K at this time - No additional NSAIDS - Await full work-up - Likely compoenent of chronic liver disease and recent antibiotics. Current Visit: Yes Status: Acute Code(s): D69.6 - THROMBOCYTOPENIA, UNSPECIFIED SNOMED Code(s): 777965054 (3) Pulmonary embolism Current Visit: Yes Status: Acute Code(s): I26.99 - OTHER PULMONARY EMBOLISM WITHOUT ACUTE COR PULMONALE SNOMED Code(s): 78517451 Plan: COntinue on Heparin drip and monitor CBC the next 24-48 hours daily, as long as remains greater than 50K can convert to PO DOAC. - IVC is not recommended at this time Await full thrombocytopenia work-up Thrombocytopenia likely chronic (no trend to compare) liver disease - Chronic ETOH use Dr. Robert: I have completed the full history and physical and developed the above impression and plan, agree with dictation, dictated as a scribe.
[2021-08-02 10:02] LABS: Albumin 3.1 g/dL (3.5-5.0); Calcium 8.6 mg/dL (8.4-10.2); Total Bilirubin 0.6 mg/dL (0.2-1.3); Total Protein 5.4 g/dL (6.3-8.2)
--- NOTE | 2021-08-02 10:10 | ECHOF ---
Referral Reason:eval for cardiac strain, PE MEASUREMENTS -------- HEIGHT: 167.6 cm WEIGHT: 64.4 kg BP: RVIDd: 2.3 cm (< 3.3) IVSd: 1.1 cm (0.6 - 1.1) LVIDd: 4.4 cm (3.9 - 5.3) LVPWd: 1.1 cm (0.6 - 1.1) IVSs: 1.7 cm LVIDs: 2.7 cm LVPWs: 1.3 cm LA Diam: 3.1 cm (2.7 - 3.8) Ao Diam: 2.7 cm (2.0 - 3.7) AV Cusp: 1.7 cm (1.5 - 2.6) MV EXCURSION: 12.148 mm (> 18.000) MV EF SLOPE: 71 mm/s (70 - 150) EPSS: 0.2 cm MV E Sundar: 0.72 m/s MV DecT: 253 ms MV A Sundar: 0.94 m/s MV E/A Ratio: 0.77 TAPSE: 2.01 cm FINDINGS -------- Sinus rhythm. This was a technically adequate study. The left ventricular size is normal. There is borderline concentric left ventricular hypertrophy. Overall left ventricular systolic function is normal with, an EF between 55 - 60 %. The right ventricle is normal in size. The left atrium is normal in size. The right atrium is normal in size. Interatrial and interventricular septum intact. There is mild aortic valve sclerosis. There is trace mitral regurgitation. The tricuspid valve appears structurally normal. Unable to estimate RVSP due to inadequate TR jet s pectral doppler profile. The pulmonic valve is normal. The aortic root size is normal. Normal inferior vena cava with normal inspiratory collapse consistent with estimated right atrial pre ssure of 5 mmHg. There is no pericardial effusion. CONCLUSIONS -------- 1. The left ventricular size is normal. 2. There is borderline concentric left ventricular hypertrophy. 3. Overall left ventricular systolic function is normal with, an EF between 55 - 60 %. 4. There is mild aortic valve sclerosis. 5. There is trace mitral regurgitation. 6. There is no pericardial effusion. DIRECTOR OF BUSINESS SYSTEMS: Kaylah Rai RDCS
--- NOTE | 2021-08-02 10:57 | US ---
EXAMINATION TYPE: US abdomen limited DATE OF EXAM: 08/02/2021 COMPARISON: CT abdomen April 06, 2019 CLINICAL HISTORY: Assess Liver. History of pulmonary embolism and DVT EXAM MEASUREMENTS: Liver Length: 16.8 cm Gallbladder Wall: 0.3 cm CBD: 0.4 cm Right Kidney: 9.3 x 5.0 x 5.9 cm Pancreas: Tail obscured by overlying bowel gas Liver: Increased attenuation, decreased visualization of vessels suggestive of fatty infiltrate Gallbladder: No stones seen Evidence for sonographic Mendieta's sign: No CBD: wnl Right Kidney: No hydronephrosis, prominent are seen in superior kidney appear as a possible column o f Yemi. Visualized liver is heterogeneously hyperechoic. Visualized liver upper limits of normal in size. No surrounding ascites. No intrahepatic or extrahepatic biliary dilatation. No right-sided hydronephrosi s. IMPRESSION: Liver size upper limits of normal with heterogeneous hyperechoic appearance suggesting di ffuse fatty infiltration and/or underlying hepatocellular disease. No biliary dilatation noted.
--- NOTE | 2021-08-02 11:03 | P.CNPUL ---
History of Present Illness Consult date: 08/02/21 Requesting physician: Bulmaro Sands Reason for consult: dyspnea, pulmonary embolism, abnormal CXR/CT Chief complaint: Shortness of breath, left leg swelling. History of present illness: Pulmonary consult dated 08/02/2021. 71-year-old female who presented to the emergency department, complaints of left leg swelling and discomfort. The patient was found to have a nonocclusive DVT of the left lower extremity, and subsequent to that, because of shortness of breath, the patient had a CT angiogram which revealed extensive bilateral pulmonary emboli, and even saddle embolism. The patient was admitted, and placed on IV heparin. I asked the ER physician's orders, and N-terminal proBNP, troponin level, and a vascular surgery consult for consideration of possible catheter directed TPA and ultrasonic dissolution of the clot (EKOS). The patient has no prior history of DVT. There is no prior history of pulmonary embolism. No family history of either. The patient is a tobacco user. She may have some underlying COPD. She does use a rescue inhaler. She also has a history of hypertension, GERD, and hyperlipidemia, as well as hyperuricemia. The patient denies any recent long train ride, boat ride, car ride, or plane ride. She did have some recent trauma to left lower extremity. She also states that she bruises very easily. White count 4.5, hemoglobin 12.5, hematocrit 38.8, and platelet count 63,000. PTT is 180.5. Sodium 134, potassium 4, chlorides 109, CO2 18, anion gap 7, BUN 21, and creatinine 0.78. Albumin is 3.1. Chest CT shows bilateral pulmonary emboli, and even saddle embolism. There was no mention of heart strain, although the ER physician told me that he was told there was no right heart strain. Review of Systems REVIEW OF SYSTEMS: CONSTITUTIONAL: [Negative.] NEUROLOGIC: [ Negative.] HEENT: [ Negative.] CARDIAC: Left lower extremity swelling and mild pain. PULMONARY: Shortness of breath, and apparently been going on for about one month or so. GI: [Negative.] : [Negative.] RHEUMATOLOGIC: [ Negative.] IMMUNOLOGIC: [ Negative.] ENDOCRINE: [Negative. ] DERMATOLOGIC: [Negative.] Past Medical History Past Medical History: Cancer, Eye Disorder, GERD/Reflux, Hyperlipidemia, Hypertension Additional Past Medical History / Comment(s): brittany cataracts, SOB w/ activity,steroid injection September 2019,skin CA w/ removal, abscess on baby toe, skin CA History of Any Multi-Drug Resistant Organisms: None Reported Past Surgical History: Tonsillectomy Additional Past Surgical History / Comment(s): rt cataract 6-02-22 Past Anesthesia/Blood Transfusion Reactions: No Reported Reaction Past Psychological History: Depression Smoking Status: Former smoker Past Alcohol Use History: Occasional Additional Past Alcohol Use History / Comment(s): started smoking at age 19 Past Drug Use History: Marijuana Additional Drug Use History / Comment(s): uses marijuana occas. - Past Family History Mother Family Medical History: No Reported History Sister(s) Family Medical History: Cancer Additional Family Medical History / Comment(s): breast Medications and Allergies Home Medications Medication Instructions Recorded Confirmed Type Lovastatin [Mevacor] 20 mg PO HS 10/13/19 08/01/21 History lisinopriL 20 mg PO HS 10/13/19 08/01/21 History ALPRAZolam [Xanax] 0.25 mg PO DAILY PRN 08/01/21 08/01/21 History Albuterol Sulfate [Ventolin HFA] 2 puff INHALATION RT-Q6H PRN 08/01/21 08/01/21 History Citalopram Hydrobromide [CeleXA] 20 mg PO DAILY 08/01/21 08/01/21 History Febuxostat [Uloric] 40 mg PO DAILY 08/01/21 08/01/21 History amLODIPine [Norvasc] 2.5 mg PO DAILY 08/01/21 08/01/21 History Allergies Allergy/AdvReac Type Severity Reaction Status Date / Time codeine AdvReac Nausea Verified 08/01/21 14:30 Physical Exam Osteopathic Statement: *. No significant issues noted on an osteopathic structural exam other than those noted in the History and Physical/Consult. Vitals: Vital Signs Temp Pulse Pulse Resp BP BP Pulse Ox 08/02/21 09:00 98.9 F 72 18 142/70 97 08/02/21 04:00 98.5 F 62 16 118/70 96 08/02/21 02:00 67 18 08/01/21 23:16 99.0 F 67 18 136/76 96 08/01/21 20:00 98.7 F 77 16 137/71 97 08/01/21 18:31 98.6 F 80 16 139/67 95 08/01/21 17:03 82 18 199/91 98 08/01/21 13:04 99.1 F 89 18 127/74 98 Intake and Output 08/01/21 08/02/21 08/02/21 22:59 06:59 14:59 Intake Total 94.105 Output Total 300 Balance -205.895 Intake: Intake, IV Titration 94.105 Amount Heparin Sod,Pork in 0.45% 94.105 NaCl 25,000 unit In 0.45 % NaCl 1 250ml.bag @ 18 UNITS/KG/HR 11.594 mls/hr IV .[id number] [facility] Rx#: [id number] Output: Urine 300 Other: Voiding Method Bedside Commode Bedside Commode # Voids 1 1 Weight 64.41 kg No acute distress, oriented 3. Currently not on any supplemental oxygen. There is no conversational dyspnea, or use of accessory muscles. HEENT examination is grossly unremarkable. Neck supple. Full range of motion. No adenopathy thyromegaly or neck vein distention. Cardiovascular examination reveals regular rhythm rate. S1-S2 normal. No S3 or S4. No discernible murmur noted. Heart rate 72 bpm. Lungs reveal clear breath sounds. Breath sounds are equal bilaterally. No adventitious lung sounds including wheezes rhonchi or crackles. Her saturations 97%. Abdomen soft bowel sounds are heard. No masses or tenderness. Extremities are intact. No cyanosis or clubbing. Left leg is larger than the right. Skin reveals multiple areas of ecchymoses, particularly in the left lower extremity. Neurologic examination is brief but nonfocal. Results - Laboratory Findings CBC and BMP: 08/02/21 08:02 08/02/21 08:02 PT/INR, D-dimer PT 11.3 sec (9.0-12.0) 08/01/21 13:31 INR 1.0 (<1.2) 08/01/21 13:31 Abnormal lab findings: Abnormal Labs 08/01/21 08/01/21 08/02/21 13:31 13:51 00:15 Plt Count 75 L APTT 180.5 H* Sodium 134 L Chloride 108 H Carbon Dioxide 20 L BUN 31 H ALT Total Protein Albumin 08/02/21 08/02/21 08/02/21 00:15 08:02 08:02 Plt Count 61 L 63 L APTT Sodium 134 L Chloride 109 H Carbon Dioxide 18 L BUN 21 H ALT 39 H Total Protein 5.4 L Albumin 3.1 L - Diagnostic Findings CT scan - chest: image reviewed Assessment and Plan Assessment: Left lower extremity DVT, as well as large bilateral pulmonary emboli/saddle embolism. The patient is hemodynamically stable, not requiring any supplemental oxygen, and there was no mention of right heart strain on the CT angiogram. Echocardiogram is pending. History of hyperlipidemia. History of hypertension. History of ongoing tobacco use with nicotine addiction. Possible underlying COPD. History of hyperuricemia. Plan: Plan dated 08/02/2021. We are pending the interpretation of the echocardiogram. In addition, I did ask the emergency room physician to consult vascular surgery. Clinically, the patient's very stable. She's not requiring any supplemental oxygen. Hemodynamically, the patient's very stable. The patient apparently started having symptoms about a month ago. She denies being overwhelmingly sedentary. She denies any trauma to the lower extremities or any major recent hip or knee surgery. The patient also denies any recent long train ride, car ride, both right, or plane ride. There is no family history of DVT or pulmonary embolism. Prognosis is guarded. We'll continue to follow make recommendations where appropriate. Time with Patient: Greater than 30
--- NOTE | 2021-08-02 11:47 | P.GSCN ---
History of Present Illness Consult date: 08/02/21 Reason for Consult: Saddle Pulmonary embolism Requesting physician: Alcon Pires History of present illness: This is a 71-year-old female who presented to the emergency department as directed by her primary care physician. Apparently she had been having some left lower extremity discomfort and swelling as well as some shortness of breath. She had a venous duplex done outpatient that was positive for a DVT. She was told to come to the emergency department for further evaluation. At that time she did mention that she was having exertional shortness of breath and they did a CT angiogram of the chest which reported pulmonary emboli bilaterally. Vascular surgery was consulted for further management. She has a past medical history of skin cancer, GERD, hyperlipidemia and hypertension. She is a current smoker. She has no previous history of DVT or pulmonary embolism. She denies any recent surgeries, traveling, or history of clotting disorder. She states she does have bilateral right hip pain with bursitis and has been bleeding more of a sedentary lifestyle, she does see physical therapy who was the one C recommended she get seen. Vital signs have been stable temperature 98.5 heart rate 62, respiratory rate 16 blood pressure 118/70 oxygen saturation 96-97% on room air. Troponins were negative. Patient was noted to be thrombocytopenic on admission and hematology has been consulted. Echocardiogram was performed this morning, results are still pending. She is currently on a heparin drip. Review of Systems 14 point review of systems completed and all pertinent positives and negatives as stated in the HPI. Past Medical History Past Medical History: Cancer, Eye Disorder, GERD/Reflux, Hyperlipidemia, Hypertension Additional Past Medical History / Comment(s): brittany cataracts, SOB w/ activity,steroid injection September 2019,skin CA w/ removal, abscess on baby toe, skin CA History of Any Multi-Drug Resistant Organisms: None Reported Past Surgical History: Tonsillectomy Additional Past Surgical History / Comment(s): rt cataract 6- Past Anesthesia/Blood Transfusion Reactions: No Reported Reaction Past Psychological History: Depression Smoking Status: Former smoker Past Alcohol Use History: Occasional Additional Past Alcohol Use History / Comment(s): started smoking at age 19 Past Drug Use History: Marijuana Additional Drug Use History / Comment(s): uses marijuana occas. - Past Family History Mother Family Medical History: No Reported History Sister(s) Family Medical History: Cancer Additional Family Medical History / Comment(s): breast Medications and Allergies Home Medications Medication Instructions Recorded Confirmed Type Lovastatin [Mevacor] 20 mg PO HS 10/13/19 08/01/21 History lisinopriL 20 mg PO HS 10/13/19 08/01/21 History ALPRAZolam [Xanax] 0.25 mg PO DAILY PRN 08/01/21 08/01/21 History Albuterol Sulfate [Ventolin HFA] 2 puff INHALATION RT-Q6H PRN 08/01/21 08/01/21 History Citalopram Hydrobromide [CeleXA] 20 mg PO DAILY 08/01/21 08/01/21 History Febuxostat [Uloric] 40 mg PO DAILY 08/01/21 08/01/21 History amLODIPine [Norvasc] 2.5 mg PO DAILY 08/01/21 08/01/21 History Allergies Allergy/AdvReac Type Severity Reaction Status Date / Time codeine AdvReac Nausea Verified 08/01/21 14:30 Surgical - Exam Vital Signs Temp Pulse Resp BP Pulse Ox 99.1 F 89 18 127/74 98 08/01/21 13:04 08/01/21 13:04 08/01/21 13:04 08/01/21 13:04 08/01/21 13:04 General appearance: The patient is alert, oriented, appears in no acute distress. HET: Head is normocephalic and atraumatic. Neck: Supple without lymphadenopathy. Trachea midline. No audible carotid bruit. Heart: S1 S2. Regular rate and rhythm. Lungs: Normal expansion, equal air entry. Clear to auscultation bilaterally. Abdomen: Soft, nontender, nondistended. Extremities: Bilateral lower extremity with bruising. Left lower extremity edema. Neurological: No focal deficits. Strength and sensation are grossly intact. Results - Labs 08/02/21 08:02 08/02/21 08:02 Abnormal Lab Results - Last 24 Hours (Table) 08/01/21 08/01/21 08/02/21 Range/Units 13:31 13:51 00:15 Plt Count 75 L (150-450) k/uL APTT 180.5 H* (22.0-30.0) sec Sodium 134 L (137-145) mmol/L Chloride 108 H (98-107) mmol/L Carbon Dioxide 20 L (22-30) mmol/L BUN 31 H (7-17) mg/dL 08/02/21 Range/Units 00:15 Plt Count 61 L (150-450) k/uL APTT (22.0-30.0) sec Sodium (137-145) mmol/L Chloride (98-107) mmol/L Carbon Dioxide (22-30) mmol/L BUN (7-17) mg/dL Diabetes panel 08/01/21 Range/Units 13:51 Sodium 134 L (137-145) mmol/L Potassium 4.0 (3.5-5.1) mmol/L Chloride 108 H (98-107) mmol/L Carbon Dioxide 20 L (22-30) mmol/L BUN 31 H (7-17) mg/dL Creatinine 1.01 (0.52-1.04) mg/dL Glucose 82 (74-99) mg/dL Calcium 9.0 (8.4-10.2) mg/dL Calcium panel 08/01/21 Range/Units 13:51 Calcium 9.0 (8.4-10.2) mg/dL Pituitary panel 08/01/21 Range/Units 13:51 Sodium 134 L (137-145) mmol/L Potassium 4.0 (3.5-5.1) mmol/L Chloride 108 H (98-107) mmol/L Carbon Dioxide 20 L (22-30) mmol/L BUN 31 H (7-17) mg/dL Creatinine 1.01 (0.52-1.04) mg/dL Glucose 82 (74-99) mg/dL Calcium 9.0 (8.4-10.2) mg/dL Adrenal panel 08/01/21 Range/Units 13:51 Sodium 134 L (137-145) mmol/L Potassium 4.0 (3.5-5.1) mmol/L Chloride 108 H (98-107) mmol/L Carbon Dioxide 20 L (22-30) mmol/L BUN 31 H (7-17) mg/dL Creatinine 1.01 (0.52-1.04) mg/dL Glucose 82 (74-99) mg/dL Calcium 9.0 (8.4-10.2) mg/dL - Imaging Comments: CT angiogram chest reports digital embolus present, filling defects is extend into the right and left pulmonary artery and into the sink mental branches of t he lower lobes and right upper and middle lobes. There are no greater than 1 cm hilar or mediastinal lymph nodes. No pericardial effusion seen Abdominal ultrasound reports liver size upper limits of normal with heterogeneous hyperechoic appearance suggesting diffuse fatty infiltrate and/or underlying hepatocellular disease. No biliary dilation noted. Assessment and Plan Assessment: 1. Bilateral pulmonary embolism with no evidence of right heart strain 2. Left lower extremity DVT 3. Thrombocytopenia 4. Alcohol abuse 5. Current smoker 6. History of hypertension and hyperlipidemia Plan: 1. Continue IV heparin drip 2. Appreciate recommendations from hematology regarding anticoagulation and thrombocytopenia 3. Echocardiogram ordered, no evidence of right heart strain 4. Patient may have regular diet 5. There is no indication for any vascular surgical intervention at this time. We'll defer anticoagulation management to hematology. Thank you for this consultation, we will be on standby if further needed. Please do not hesitate to call us back. The impression and plan of care has been dictated as directed. Dr. Owens I performed a history and examination of this patient, discussed the same with the dictator. I agree with the dictator's note ,documented as a scribe. Any additional findings or plans will be noted.
[2021-08-02 12:02] LABS: Partial Thromboplastin Time 52.4 sec (22.0-30.0)
[2021-08-02 12:10] LABS: ALT 34 U/L (4-34); AST 28 U/L (14-36); Albumin 2.9 g/dL (3.5-5.0); Alkaline Phosphatase 50 U/L (38-126); Bilirubin, Delta 0.2 mg/dL (0.0-0.2); Bilirubin,Unconjugated 0.4 mg/dL (0.0-1.1); C Reactive Protein <0.5 mg/dL (<1.0); LDH 513 U/L (313-618); Total Bilirubin 0.6 mg/dL (0.2-1.3); Total Protein 5.1 g/dL (6.3-8.2)
[2021-08-02 14:25] LABS: Immunoglobulin M 83.2 mg/dL (40.0-280.0)
--- NOTE | 2021-08-02 15:50 | P.PN ---
Subjective This is a pleasant 71 years old female with past medical history of osteoarthritis of the hips undergoing physical therapy, hypertension, hyperlipid emia, cigarette smoker, GERD, depression Patient reports bruising easily but no history of deep venous thrombosis. She was working with her physical therapy when she reported left leg swelling and she was referred to urgent care before come to emergency room and ultrasound showed a 2 DVT while CTA showing pulmonary embolism. Patient was complaining of from some shortness of breath but denies coughing, no hemoptysis, no chest pain. Patient denies history of cancer, no history of bed ridden secondary to surgery over the last 3 months, no recent history of treated by a car or plane She is a smoker about half cigarettes 3 times a day as she describes, she was counseled to quit and she agrees stating that she has nicotine patches at home. She drinks up will wants a day and sometimes before. No illicit drugs CTA of the chest showing bilateral multiple emboli Patient is hemodynamically stable. Labs including CBC, INR, BMP is unremarkable. Patient is a started on normal saline and heparin drip Pulmonary, vascular surgery and hematology team's consulted already 08/02/2021 Patient with no chest pain or dyspnea, blood pressure and heart rate and oxygen saturation all normal. Platelets 63 Several consultants of the case and input is appreciated Continue with heparin drip for now, no need for surgical intervention Liver ultrasound showed normal-sized liver wound with hepatocellular disease versus fatty liver with no biliary dilatation. Echocardiogram: Ejection fraction 55-60%, no evidence of strain no evidence of alcohol withdrawal clinically today Objective - Vital Signs Vital signs: Vital Signs Temp 98.9 F 08/02/21 09:00 Pulse 72 08/02/21 09:00 Resp 18 08/02/21 09:00 BP 142/70 08/02/21 09:00 Pulse Ox 97 08/02/21 09:00 Intake & Output 08/01/21 08/02/21 08/02/21 18:59 06:59 18:59 Intake Total 94.105 Output Total 300 Balance -205.895 Weight 64.41 kg Intake: Intake, IV Titration 94.105 Amount Heparin Sod,Pork in 0.45% 94.105 NaCl 25,000 unit In 0.45 % NaCl 1 250ml.bag @ 18 UNITS/KG/HR 11.594 mls/hr IV .[id number] [facility] Rx#: [id number] Output: Urine 300 Other: Voiding Method Bedside Commode Bedside Commode # Voids 1 1 - Exam GENERAL: The patient is alert and oriented x3, not in any acute distress. Well developed, well nourished. HEENT: Pupils are round and equally reacting to light. EOMI. No scleral icterus. No conjunctival pallor. Normocephalic, atraumatic. No pharyngeal erythema. No thyromegaly. CARDIOVASCULAR: S1 and S2 present. No murmurs, rubs, or gallops. PULMONARY: Chest is clear to auscultation, no wheezing or crackles. ABDOMEN: Soft, nontender, nondistended, normoactive bowel sounds. No palpable organomegaly. MUSCULOSKELETAL: No joint swelling or deformity. EXTREMITIES: No cyanosis, clubbing, or pedal edema. NEUROLOGICAL: Gross neurological examination did not reveal any focal deficits. SKIN: No rashes. no petechiae. - Labs CBC & Chem 7: 08/02/21 08:02 08/02/21 08:02 Labs: Abnormal Lab Results - Last 24 Hours (Table) 08/01/21 08/01/21 08/02/21 Range/Units 13:31 13:51 00:15 Plt Count 75 L (150-450) k/uL APTT 180.5 H* (22.0-30.0) sec Sodium 134 L (137-145) mmol/L Chloride 108 H (98-107) mmol/L Carbon Dioxide 20 L (22-30) mmol/L BUN 31 H (7-17) mg/dL ALT (4-34) U/L Total Protein (6.3-8.2) g/dL Albumin (3.5-5.0) g/dL 08/02/21 08/02/21 08/02/21 Range/Units 00:15 08:02 08:02 Plt Count 61 L 63 L (150-450) k/uL APTT (22.0-30.0) sec Sodium 134 L (137-145) mmol/L Chloride 109 H (98-107) mmol/L Carbon Dioxide 18 L (22-30) mmol/L BUN 21 H (7-17) mg/dL ALT 39 H (4-34) U/L Total Protein 5.4 L (6.3-8.2) g/dL Albumin 3.1 L (3.5-5.0) g/dL Assessment and Plan Assessment: Acute Bilateral pulmonary emboli Left leg acute deep venous thrombosis alcohol abuse Nicotine dependence Hypertension Hyperlipidemia Nicotine dependence History of GERD History of depression, not an active issue. Plan: This is a pleasant 71 years old female who presents with acute DVT Continue with heparin infusion Hematology consults Follow-up with pulmonary and vascular surgery [facility] protocol amphetamine initiated Labs and medication were reviewed.. Continue same treatment. Continue with symptomatic treatment. Resume home medication. Monitor lytes and vitals. DVT and GI prophylaxis. Further recommendations depends on the clinical course of the patient DVT prophylaxis:s heparin GI Prophylaxis: Pepcid
[2021-08-02] MEDS: HEPARIN SOD,PORK IN 0.45% NACL 25,000 UNIT in 0.45% NACL 1 250ML.BAG IV SCH (17:24)
[2021-08-02] MEDS: lisinopriL 20 MG TAB PO SCH (19:47)
[2021-08-02] MEDS: ALPRAZolam 0.25 MG TAB PO PRN (19:53)
[2021-08-02 20:27] LABS: % Iron Saturation 17.66 (12.00-45.00); Iron 58 ug/dL (50-170); Total Iron Binding Capacity 326 ug/dL (228-460)
[2021-08-02 21:02] LABS: Protein, Total 4.9 g/dL (6.2-8.2)
[2021-08-03] MEDS: amLODIPine 2.5 MG TAB PO SCH (08:01)
[2021-08-03] MEDS: THIAMINE 100 MG TAB PO SCH (08:01)
[2021-08-03] MEDS: CITALOPRAM HYDROBROMIDE 20 MG TAB PO SCH (08:01)
[2021-08-03] MEDS: FAMOTIDINE 20 MG/2 ML VIAL IV SCH (08:01)
[2021-08-03 09:31] LABS: Basophils % (A) 0 %; Eosinophils % (A) 1 %; HCT 39.2 % (34.0-46.0); HGB 12.5 gm/dL (11.4-16.0); Lymphocytes % (A) 23 %; MCH 29.9 pg (25.0-35.0); MCHC 31.9 g/dL (31.0-37.0); MCV 93.9 fL (80.0-100.0); Monocytes # (A) 0.2 k/uL (0-1.0); Monocytes % (A) 5 %; Neutrophils # (A) 3.1 k/uL (1.3-7.7); Neutrophils % (A) 69 %; RBC 4.17 m/uL (3.80-5.40); RDW 13.6 % (11.5-15.5); WBC 4.4 k/uL (3.8-10.6)
[2021-08-03 09:33] LABS: Platelet Count 70 k/uL (150-450)
[2021-08-03 11:35] VITALS: BP 126/78; PULSE 79; RESP 16; TEMP 99.7
[2021-08-03 12:14] LABS: Heparin Induced Plt Abs 0.098 OD (<0.4)
[2021-08-03 13:28] LABS: Albumin 2.91 g/dL (3.80-4.90); Gamma Globulin 0.39 g/dL (0.70-1.50)
[2021-08-03] MEDS ORDERED: APIXABAN 5 MG TAB PO SCH (13:45)
--- NOTE | 2021-08-03 13:54 | P.PN ---
Subjective Progress Note Date: 08/03/21 Principal diagnosis: Pulmonary embolism. Pulmonary consult dated 08/02/2021. 71-year-old female who presented to the emergency department, complaints of left leg swelling and discomfort. The patient was found to have a nonocclusive DVT of the left lower extremity, and subsequent to that, because of shortness of breath, the patient had a CT angiogram which revealed extensive bilateral pulmonary emboli, and even saddle embolism. The patient was admitted, and placed on IV heparin. I asked the ER physician's orders, and N-terminal proBNP, troponin level, and a vascular surgery consult for consideration of possible catheter directed TPA and ultrasonic dissolution of the clot (EKOS). The patient has no prior history of DVT. There is no prior history of pulmonary embolism. No family history of either. The patient is a tobacco user. She may have some underlying COPD. She does use a rescue inhaler. She also has a history of hypertension, GERD, and hyperlipidemia, as well as hyperuricemia. The patient denies any recent long train ride, boat ride, car ride, or plane ride. She did have some recent trauma to left lower extremity. She also states that she bruises very easily. White count 4.5, hemoglobin 12.5, hematocrit 38.8, and platelet count 63,000. PTT is 180.5. Sodium 134, potassium 4, chlorides 109, CO2 18, anion gap 7, BUN 21, and creatinine 0.78. Albumin is 3.1. Chest CT shows bilateral pulmonary emboli, and even saddle embolism. There was no mention of heart strain, although the ER physician told me that he was told there was no right heart strain. Progress note dated 08/03/2021. 71-year-old female who we saw yesterday in consultation. The patient has a history of left leg swelling and shortness of breath. She was found have a no nocclusive DVT of the left lower extremity, and also CT angiogram which revealed bilateral extensive pulmonary emboli. Vascular surgery saw her and thought she was not a candidate for catheter directed TPA/ultrasonic dissolution of the clot. Today, the heparin was discontinued. We started Elavil plus. The patient had an unprovoked pulmonary embolism. She should be treated for 6 months. She is clinically doing well. She's not requiring any supplemental oxygen. White count 4.4, hemoglobin 12.5, hematocrit 39.2, and platelet count was 70,000. Objective - Vital Signs Vital signs: Vital Signs Temp 99.7 F H 08/03/21 11:32 Pulse 79 08/03/21 11:32 Resp 16 08/03/21 11:32 BP 126/78 08/03/21 11:32 Pulse Ox 97 08/03/21 11:32 Intake & Output 08/02/21 08/03/21 08/03/21 18:59 06:59 18:59 Intake Total 239.808 120 Output Total 0 Balance 239.808 120 Intake: Intake, IV Titration 119.808 Amount Heparin Sod,Pork in 0.45% 119.808 NaCl 25,000 unit In 0.45 % NaCl 1 250ml.bag @ 18 UNITS/KG/HR 11.594 mls/hr IV .[id number] [facility] Rx#: [id number] Oral 120 120 Output: Urine 0 Stool 0 Urine/Stool Mix 0 Other: Voiding Method Bedside Commode Bedside Commode Bedside Commode # Voids 2 1 1 # Bowel Movements 1 1 - Exam No acute distress, oriented 3. Currently not on any supplemental oxygen. There is no conversational dyspnea, or use of accessory muscles. HEENT examination is grossly unremarkable. Neck supple. Full range of motion. No adenopathy thyromegaly or neck vein distention. Cardiovascular examination reveals regular rhythm rate. S1-S2 normal. No S3 or S4. No discernible murmur noted. Heart rate 79 bpm. Lungs reveal clear breath sounds. Breath sounds are equal bilaterally. No adventitious lung sounds including wheezes rhonchi or crackles. Her saturations 97%. Abdomen soft bowel sounds are heard. No masses or tenderness. Extremities are intact. No cyanosis or clubbing. Left leg is larger than the right. Skin reveals multiple areas of ecchymoses, particularly in the left lower extremity. Neurologic examination is brief but nonfocal. - Labs CBC & Chem 7: 08/03/21 08:19 08/02/21 08:02 Labs: Abnormal Lab Results - Last 24 Hours (Table) 08/02/21 08/02/21 08/03/21 Range/Units 10:31 10:31 08:19 Plt Count 70 L (150-450) k/uL Haptoglobin 252.0 H (31.2-198.0) mg/dL APTT (22.0-30.0) sec Total Protein (PEP) 4.9 L (6.2-8.2) g/dL Albumin (PEP) 2.91 L (3.80-4.90) g/dL Gamma Globulins 0.39 L (0.70-1.50) g/dL IgG 353.0 L (700.0-1600.0) mg/dL 08/03/21 Range/Units 08:19 Plt Count (150-450) k/uL Haptoglobin (31.2-198.0) mg/dL APTT 62.2 H (22.0-30.0) sec Total Protein (PEP) (6.2-8.2) g/dL Albumin (PEP) (3.80-4.90) g/dL Gamma Globulins (0.70-1.50) g/dL IgG (700.0-1600.0) mg/dL Assessment and Plan Assessment: Left lower extremity DVT, as well as large bilateral pulmonary emboli/saddle embolism. The patient is hemodynamically stable, not requiring any supplemental oxygen, and there was no mention of right heart strain on the CT angiogram. History of hyperlipidemia. History of hypertension. History of ongoing tobacco use with nicotine addiction. Possible underlying COPD. History of hyperuricemia. Plan: Plan dated 08/02/2021. We are pending the interpretation of the echocardiogram. In addition, I did ask the emergency room physician to consult vascular surgery. Clinically, the patient's very stable. She's not requiring any supplemental oxygen. Hemodynamically, the patient's very stable. The patient apparently started having symptoms about a month ago. She denies being overwhelmingly sedentary. She denies any trauma to the lower extremities or any major recent hip or knee surgery. The patient also denies any recent long train ride, car ride, both right, or plane ride. There is no family history of DVT or pulmonary embolism. Prognosis is guarded. We'll continue to follow make recommendations where appropriate. Plan dated 08/03/2021. The patient could be considered for possible discharge home. We will leave that up to the primary. The patient's IV heparin is discontinued in favor of Eliquis. Additional recommendations and suggestions are forthcoming. Prognosis is guarded. The patient should be treated for 6 months. The patient should follow up with us in the office after discharge. Time with Patient: Less than 30
[2021-08-03] MEDS: HEPARIN SOD,PORK IN 0.45% NACL 25,000 UNIT in 0.45% NACL 1 250ML.BAG IV SCH (14:24)
--- NOTE | 2021-08-03 15:03 | P.PN ---
Subjective Progress Note Date: 08/03/21 Principal diagnosis: Acute PE/Dvt Ultrasound of Liver, Diffuse fatty liver, possible underlying liver disease. Eliquis initiated and agree with plan minimum 6month Objective - Vital Signs Vital signs: Vital Signs Temp 98.5 F 08/03/21 08:00 Pulse 77 08/03/21 08:00 Resp 18 08/03/21 08:06 BP 131/71 08/03/21 08:00 Pulse Ox 98 08/03/21 08:00 Intake & Output 08/02/21 08/03/21 08/03/21 18:59 06:59 18:59 Intake Total 239.808 120 Output Total 0 Balance 239.808 120 Intake: Intake, IV Titration 119.808 Amount Heparin Sod,Pork in 0.45% 119.808 NaCl 25,000 unit In 0.45 % NaCl 1 250ml.bag @ 18 UNITS/KG/HR 11.594 mls/hr IV .[id number] [facility] Rx#: [id number] Oral 120 120 Output: Urine 0 Stool 0 Urine/Stool Mix 0 Other: Voiding Method Bedside Commode Bedside Commode Bedside Commode # Voids 2 1 1 # Bowel Movements 1 1 - Exam Alert and Oriented NAD Lungs diminished bilateral no increased effort Eccymosis bilateral arms and legs. Abd soft Ext LLL slight increase right - Labs CBC & Chem 7: 08/03/21 08:19 08/02/21 08:02 Labs: Abnormal Lab Results - Last 24 Hours (Table) 08/02/21 08/02/21 08/02/21 Range/Units 10:31 10:31 10:31 Plt Count (150-450) k/uL Haptoglobin 252.0 H (31.2-198.0) mg/dL APTT 52.4 H (22.0-30.0) sec Fibrinogen 150 L (200-500) mg/dL D-Dimer 3.99 H (<0.60) mg/L FEU Total Protein 5.1 L (6.3-8.2) g/dL Total Protein (PEP) 4.9 L (6.2-8.2) g/dL Albumin 2.9 L (3.5-5.0) g/dL IgG (700.0-1600.0) mg/dL 08/02/21 08/03/21 08/03/21 Range/Units 10:31 08:19 08:19 Plt Count 70 L (150-450) k/uL Haptoglobin (31.2-198.0) mg/dL APTT 62.2 H (22.0-30.0) sec Fibrinogen (200-500) mg/dL D-Dimer (<0.60) mg/L FEU Total Protein (6.3-8.2) g/dL Total Protein (PEP) (6.2-8.2) g/dL Albumin (3.5-5.0) g/dL IgG 353.0 L (700.0-1600.0) mg/dL Assessment and Plan (1) Left leg DVT Current Visit: Yes Status: Acute Code(s): I82.402 - ACUTE EMBOLISM AND THOMBOS UNSP DEEP VEINS OF L LOW EXTREM SNOMED Code(s): 627335263 (2) Thrombocytopenia Narrative/Plan: - Thrombocytopenia work-up has been ordered - As long as no s/s bleeding transfusion support to maintain platelet count greater than 50K at this time - No additional NSAIDS - Await full work-up - Likely compoenent of chronic liver disease and recent antibiotics. - Stable today 70K Current Visit: Yes Status: Acute Code(s): D69.6 - THROMBOCYTOPENIA, UNSPECIFIED SNOMED Code(s): 452091260 (3) Pulmonary embolism Current Visit: Yes Status: Acute Code(s): I26.99 - OTHER PULMONARY EMBOLISM WITHOUT ACUTE COR PULMONALE SNOMED Code(s): 12605986 Plan: COntinue on Heparin drip and monitor CBC the next 24-48 hours daily, as long as remains greater than 50K can convert to PO DOAC. - IVC is not recommended at this time Await full thrombocytopenia work-up Thrombocytopenia likely chronic (no trend to compare) liver disease - Chronic ETOH use Will have patient follow-up with outpatient for full hypercoagulable work-up, monitoring of platelets, and continue encouraging ETOH cesation Discussed with primary team ok for discharge from onc
--- NOTE | 2021-08-04 09:09 | P.DS ---
Providers Date of admission: 08/01/21 16:23 Attending physician: Bulmaro Sands MD Consults: 08/01/21 16:23 Consult Physician Stat Consulting Provider: Jean Claude Kwok Consult Reason/Comments: pulmonary embolism Do you want consulting provider notified?: Already Contacted 08/01/21 16:24 Consult Physician Routine Consulting Provider: Sebas Valdivia Consult Reason/Comments: Thrombocytopenia Do you want consulting provider notified?: Yes Consult Physician Urgent Consulting Provider: Bernabe Greenwood Consult Reason/Comments: saddle PE Do you want consulting provider notified?: Yes Primary care physician: [facility] Course: Diagnoses: Acute Bilateral pulmonary emboli Left leg acute deep venous thrombosis alcohol abuse Nicotine dependence Hypertension Hyperlipidemia Nicotine dependence History of GERD History of depression, not an active issue. Hospital course: This is a pleasant 71 years old female with past medical history of osteoarthritis of the hips undergoing physical therapy, hypertension, hyperlipidemia, cigarette smoker, GERD, depression Patient reports bruising easily but no history of deep venous thrombosis. She presents with mild exertional dyspnea and left leg swelling and erythema. Patient was found to have acute left leg DVT and bilateral pulmonary embolism, there was no evidence of heart strain by the her PE. Patient evaluated by wheat and oats flake miller, vascular surgery and mosaic floor layer She was started on heparin drip and switched to Eliquis 10 mg 7 days then 5 mg, Patient remains asymptomatic not chest pain or dyspnea, her left leg pain and swelling improving, no change in urine or bowel habits. No fever. Patient was cleared for discharge by all consultants including pulmonary, hematology and vascular surgery Importance of a tenderness to treatment are explained to the patient extensively Problems and management plan were discussed with the patient and he verbalized understanding and acceptance Patient was found stable and can be discharged home however he needs follow-up as an outpatient. Patient was instructed to follow up with PCP within one week and patient agrees Patient was instructed to follow up with Dr. Kwok wheat and oats flake miller in 1-[address] Valdivia mosaic floor layer in 1-2 weeks and she agrees to call and make her own appointment Physical exam Gen: patient is a AAOx3, no distress CVS: S1-S2, RRR, no murmur Lungs: B/L CTA, no wheezing Abdomen: soft, no distention, no tenderness, positive bowel sounds Extremity: no leg edema or induration Time spent more than 35 minutes Patient Condition at Discharge: Serious Plan - Discharge Summary Discharge Rx Participant: No New Discharge Prescriptions: New Apixaban [Eliquis] 5 mg PO DIRECTED #60 tab Thiamine [Vitamin B-1] 100 mg PO DAILY #30 tab Continue Lovastatin [Mevacor] 20 mg PO HS lisinopriL 20 mg PO HS Albuterol Sulfate [Ventolin HFA] 2 puff INHALATION RT-Q6H PRN PRN Reason: Shortness Of Breath Citalopram Hydrobromide [CeleXA] 20 mg PO DAILY ALPRAZolam [Xanax] 0.25 mg PO DAILY PRN PRN Reason: Anxiety Febuxostat [Uloric] 40 mg PO DAILY amLODIPine [Norvasc] 2.5 mg PO DAILY Discharge Medication List Lovastatin [Mevacor] 20 mg PO HS 10/13/19 [History] lisinopriL 20 mg PO HS 10/13/19 [History] ALPRAZolam [Xanax] 0.25 mg PO DAILY PRN 08/01/21 [History] Albuterol Sulfate [Ventolin HFA] 2 puff INHALATION RT-Q6H PRN 08/01/21 [History] Citalopram Hydrobromide [CeleXA] 20 mg PO DAILY 08/01/21 [History] Febuxostat [Uloric] 40 mg PO DAILY 08/01/21 [History] amLODIPine [Norvasc] 2.5 mg PO DAILY 08/01/21 [History] Apixaban [Eliquis] 5 mg PO DIRECTED #60 tab 08/03/21 [Rx] Thiamine [Vitamin B-1] 100 mg PO DAILY #30 tab 08/03/21 [Rx] Follow up Appointment(s)/Referral(s): Sebas Valdivia MD [STAFF PHYSICIAN] - 1 Week (Office will call you to schedule follow up. ) Jean Claude Kwok DO [Doctor of Osteopathic Medicine] - 08/17/21 2:15 pm (lung doctor) [facility] [REFERRING] - 1-2 days Activity/Diet/Wound Care/Special Instructions: heart healthy diet activity is restricted till you see your doctor Discharge Disposition: HOME SELF-CARE
== END 2021-08-03 16:37 | disposition home or self-care (01) | DRG 299 ==
LOC: EC 12:44 → 3SCARD 16:23
PROVIDERS: ADMIT Internal Medicine; ATTEND Internal Medicine
DX: I82.402 Acute embolism and thrombosis of unspecified deep veins of left lower extremity (principal); I26.92 Saddle embolus of pulmonary artery without acute cor pulmonale; D69.6 Thrombocytopenia, unspecified; E78.5 Hyperlipidemia, unspecified; F10.10 Alcohol abuse, uncomplicated; F17.210 Nicotine dependence, cigarettes, uncomplicated; K21.9 Gastro-esophageal reflux disease without esophagitis; F32.A Depression, unspecified; I10 Essential (primary) hypertension; K76.0 Fatty (change of) liver, not elsewhere classified; M16.0 Bilateral primary osteoarthritis of hip; Z79.899 Other long term (current) drug therapy; Z85.828 Personal history of other malignant neoplasm of skin; Z88.5 Allergy status to narcotic agent; Z98.42 Cataract extraction status, left eye; Z98.41 Cataract extraction status, right eye
CPT/HCPCS: 36415; 71275; 76705; 80048; 80053; 80076; 82607; 82728; 82746; 82784; 83010; 83540; 83550; 83615; 83880; 83883; 83921; 84165; 84484; 85025; 85379; 85384; 85610; 85652; 85730; 86022; 86038; 86140; 86334; 93306; 96361; 96374; 99291

== ENCOUNTER → 2021-08-01 | Outpatient (CLI) | payer MEDICARE ==
--- NOTE | 2021-08-01 12:46 | US ---
EXAMINATION TYPE: US venous doppler duplex LE LT DATE OF EXAM: 08/01/2021 12:34 PM COMPARISON: NONE CLINICAL HISTORY: R60.0 Edema of left lower leg. SIDE PERFORMED: Left TECHNIQUE: The lower extremity deep venous system is examined utilizing real time linear array sonog cyndee with graded compression, doppler sonography and color-flow sonography. VESSELS IMAGED: Common Femoral Vein Deep Femoral Vein Greater Saphenous Vein * Femoral Vein Popliteal Vein Small Saphenous Vein * Proximal Calf Veins (* superficial vessels) Left Leg: Positive for DVT Non-occluding thrombus from proximal and mid popliteal. IMPRESSION: 1. Nonoccluding deep venous thrombosis within the proximal and mid left popliteal veins.
== END | disposition home or self-care (01) ==
LOC: RADUSWWP 12:09
PROVIDERS: ATTEND Family Medicine
DX: I82.432 Acute embolism and thrombosis of left popliteal vein (principal)

== ENCOUNTER → 2021-11-01 | Outpatient (CLI) | payer MEDICARE ==
[2021-11-01 15:12] LABS: African American GFR (CKD) >90 (>60 ml/min/1.73 sqM); Blood Urea Nitrogen 27 mg/dL (7-17); Non-African American GFR(CKD) 83 (>60 ml/min/1.73 sqM)
--- NOTE | 2021-11-01 19:13 | CT ---
EXAMINATION TYPE: CT angio chest DATE OF EXAM: 11/01/2021 COMPARISON: CT dated 08/01/2021 HISTORY: Hx PE in July CT DLP: 255.60 mGy.cm. Automated Exposure Control for Dose Reduction was Utilized. TECHNIQUE AND CONTRAST: CTA scan of the thorax is performed with IV Contrast, patient injected with 100 mL of Isovue 370, pul monary embolism protocol. MIP Images are created on an independent workstation and reviewed. FINDINGS: Significant interval regression of the previously seen bilateral pulmonary emboli. Residual linear no nocclusive emboli are seen mainly in the lower lobe pulmonary arteries bilaterally, likely chronic. N o evidence of pulmonary embolism otherwise. The pulmonary trunk measures 3.3 cm. Coronary and arteria l atherosclerotic calcifications. No cardiomegaly. No pathologically enlarged lymph nodes in the chest. Bilateral basal pulmonary reticulations and mild fibrotic changes. Patent trachea and main bronchi. Mild COPD changes in the upper lobes. No pleural or pericardial effusion. Grossly unremarkable upper abdomen. Osteopenia. Degenerative changes of the lower thoracic spine. IMPRESSION: Interval regression of the previously seen pulmonary emboli with residual nonocclusive emboli as desc ribed above. Other findings as described above.
== END | disposition home or self-care (01) ==
LOC: RADCTMAIN 14:10
PROVIDERS: ATTEND Internal Medicine Critical Care Medicine
DX: I26.99 Other pulmonary embolism without acute cor pulmonale (principal)
CPT/HCPCS: 82565; 84520; 71275; 36415; Q9967

== ENCOUNTER → 2022-02-27 | Outpatient (CLI) | payer MEDICARE ==
--- NOTE | 2022-02-27 16:01 | CT ---
EXAMINATION TYPE: CT angio chest DATE OF EXAM: 02/27/2022 COMPARISON: 11/01/2021 HISTORY: 71-year-old female I26.92, saddle embolism pulmonary artery, PE follow up TECHNIQUE: Contiguous axial scanning of the chest performed with IV Contrast, patient injected with 1 00ml mL of Isovue 370. Coronal/sagittal MIP reconstructions performed. CT DLP: 261.6 mGycm Automated exposure control for dose reduction was used. FINDINGS: Heart normal size without pericardial effusion. No flattening of the interventricular septum. LAD cor onary artery calcifications. Aorta normal caliber with bovine configuration to the aortic arch. Satisfactory opacification of the pulmonary venous system. -Minimal chronic PE remains in the RLL arterial branch, axial image 75 extending into proximal segmen anahi branch, axial image [id number]. -The chronic PE involving the LLL arterial branch has cleared in the interval. -No new pulmonary embolus is seen Unchanged 1.2 cm right hilar lymph node, likely reactive. Otherwise, no thoracic lymphadenopathy by C T size criteria. Reticular and subpleural groundglass changes in the bilateral lower lobes. There may be some early childers bpleural microcystic change in some regions. No new consolidation or pleural effusion. Visualized upper abdomen shows low-attenuation hepatic parenchyma suggesting fatty infiltration. Ther e appears to be nima mesentery left upper quadrant. 3-4 week follow-up CT recommended to reassess an d further evaluate. Correlate for any abdominal pain symptoms. Bones: Moderate degenerative disc disease mid to lower thoracic spine. Slight dextroconvex curvature upper third thoracic spine. Osteopenia. IMPRESSION: 1. SIMILAR MINIMAL CHRONIC PE REMAINS IN THE RLL AND PROXIMAL SEGMENTAL RIGHT LOWER LOBE ARTERIAL BRA NCH. THE OTHER CHRONIC PE WITHIN THE LLL ARTERIAL BRANCH HAS CLEARED. NO NEW PULMONARY EMBOLUS IS SEE N. 2. SIMILAR RETICULAR AND GROUNDGLASS CHANGES IN THE LOWER LOBES, POSSIBLE INTERSTITIAL PNEUMONITIS (S UCH NSIP OR DIP) VERSUS SOME UNDERLYING INTERSTITIAL FIBROSIS. 3. NIMA MESENTERY SEEN IN THE LEFT UPPER QUADRANT. 3-4 WEEK FOLLOW-UP CONTRAST ENHANCED CT OF THE AB DOMEN AND PELVIS TO REASSESS. IN THE MEANTIME, CORRELATE FOR ANY ABDOMINAL PAIN SYMPTOMS. MESENTERIC PANNICULITIS AND EARLY LYMPHOMA ARE IN THE DIFFERENTIAL. 4. HEPATIC STEATOSIS.
== END ==
LOC: RADCTMAIN 13:05
PROVIDERS: ATTEND Internal Medicine Hematology & Oncology
DX: I26.92 Saddle embolus of pulmonary artery without acute cor pulmonale (principal)
CPT/HCPCS: 82565; 84520; 71275; 36415; Q9967